=== PATIENT | male | born 1955 | race Caucasian/White ===

== ENCOUNTER 2022-11-24 08:58 | Emergency (ER) | payer MEDICAID, OTHER ==
[~2022-11-24] VITALS: Ht 162.6 cm; Wt 68.0 kg
--- NOTE | 2022-11-24 09:12 | NUR ---
Dr Camp at the bedside for MSE. Able to flush GT w/o difficulty, redness noted around Gt insertion site.
[2022-11-24] MEDS ORDERED: DIATR MEGLU/DIATRIZOATE SODIUM 30 ML BOTTLE PO ONE (10:15)
[2022-11-24 10:21] LABS: HEMATOCRIT 37.5 % (36.7-47.1); MEAN CORPUSCULAR HEMOGLOBIN 31.2 uug (23.8-33.4); MEAN CORPUSCULAR VOLUME 95.4 fL (73.0-96.2); PLATELET COUNT (AUTO) 84 K/uL (152-348)
[2022-11-24] MEDS ORDERED: HYDR-4075 GT (10:23)
[2022-11-24] MEDS ORDERED: MIDO5TAB5 GT (10:23)
[2022-11-24] MEDS ORDERED: OMEG1CAP18 GT (10:23)
[2022-11-24] MEDS ORDERED: IPRA12.9 INH (10:23)
[2022-11-24] MEDS ORDERED: LACT10SO3 GT ×2 (10:23)
[2022-11-24] MEDS ORDERED: ALPR0.5T8 PO (10:23)
[2022-11-24] MEDS ORDERED: BISA-79 GT (10:23)
[2022-11-24] MEDS ORDERED: GUAI-671 GT (10:23)
[2022-11-24] MEDS ORDERED: KEPPRA GT (10:23)
[2022-11-24] MEDS ORDERED: PROP80CA51 GT (10:23)
[2022-11-24] MEDS ORDERED: QUET25TA GT (10:23)
[2022-11-24] MEDS ORDERED: FERR325T28 GT (10:23)
[2022-11-24] MEDS ORDERED: ACET-2154 GT (10:23)
[2022-11-24] MEDS ORDERED: DIPH50CA4 GT (10:23)
[2022-11-24] MEDS ORDERED: MULT-619 GT (10:23)
[2022-11-24] MEDS ORDERED: DIATR MEGLU/DIATRIZOATE SODIUM 30 ML BOTTLE ONE (10:33)
--- NOTE | 2022-11-24 11:59 | NUR ---
Called [facility] for transfer back to [facility]&, ETA 2 hours.
[2022-11-24 12:38] LABS: CREATININE 1.1 mg/dL (0.6-1.3); POTASSIUM 3.9 mmol/L (3.5-5.1)
[2022-11-24 12:46] LABS: BILIRUBIN,TOTAL 0.6 mg/dL (0.2-1.0); TOTAL PROTEIN, SERUM 9.9 g/dL (6.4-8.2)
--- NOTE | 2022-11-24 13:18 | NUR ---
Patient is resting comfortably in bed with eyes closed, NAD noted.
--- NOTE | 2022-11-24 13:35 | NUR ---
Received pt. AAOx1 restless slightly agitated pt. diaper changed and reaoriented. left resting comfortably.
--- NOTE | 2022-11-24 14:10 | NUR ---
Pt transfered back to [facility] via private ambulance.
== END 2022-11-24 14:12 ==
LOC: ER 08:58
DX: Z43.1 Encounter for attention to gastrostomy (principal); F03.90 Unspecified dementia, unspecified severity, without behavioral disturbance, psychotic disturbance, mood disturbance, and anxiety; I10 Essential (primary) hypertension; R47.01 Aphasia; F29 Unspecified psychosis not due to a substance or known physiological condition; Z79.899 Other long term (current) drug therapy; Z20.822 Contact with and (suspected) exposure to COVID-19
CPT/HCPCS: 36415; 70030-TC; 74018; 85025; 85610; 86900; 86901; A4663; Q9963